=== PATIENT | female | born 1960 | race Caucasian/White ===

== ENCOUNTER 2018-09-20 13:57 | Inpatient (IN) | payer BC ==
[~2018-09-20] VITALS: Ht 162.6 cm; Wt 91.8 kg
[2018-09-20 15:09] LABS: BASOPHILS # (AUTO) 0.1 X10'3 (0-0.2); BASOPHILS % (AUTO) 1.1 % (0-1); EOSINOPHILS # (AUTO) 0.3 X10'3 (0-0.9); EOSINOPHILS % (AUTO) 2.9 % (0-6); HEMATOCRIT 40.6 % (35.0-45.0); HEMOGLOBIN 13.4 g/dl (12.0-16.0); LYMPHOCYTES # (AUTO) 3.7 X10'3 (1.1-4.8); LYMPHOCYTES % (AUTO) 37.6 % (21-51); MEAN CORPUSCULAR HEMOGLOBIN 31.3 PG (27.0-31.0); MEAN CORPUSCULAR VOLUME 94.8 FL (78-98); MONOCYTES # (AUTO) 0.7 X10'3 (0-0.9); MONOCYTES % (AUTO) 6.9 % (2-12); NEUTROPHILS % (AUTO) 51.5 % (42-75); PLATELET COUNT 241 X10'3 (140-440); RED BLOOD COUNT 4.29 X10'6 (4.20-5.60); RED CELL DISTRIBUTION WIDTH 13.2 % (11.5-14.5); WHITE BLOOD COUNT 9.8 X10'3 (4.5-11.0)
[2018-09-20 15:24] LABS: ALANINE AMINOTRANSFERASE 19 U/L (12-78); ALBUMIN 3.6 G/DL (3.4-5.0); ALKALINE PHOSPHATASE 50 IU/L (46-116); ANION GAP 8 (8-16); ASPARTATE AMINO TRANSFERASE 19 U/L (10-37); BILIRUBIN,TOTAL 0.3 MG/DL (0.1-1.0); BLOOD UREA NITROGEN 14 MG/DL (7-18); BUN/CREATININE RATIO 16.1 (6.6-38.0); CALCIUM 9.1 MG/DL (8.5-10.1); CHLORIDE 107 MMOL/L (99-107); CREATININE 0.87 MG/DL (0.40-0.90); GLUCOSE 89 MG/DL (70-104); POTASSIUM 3.6 MMOL/L (3.5-5.1); SODIUM 139 MMOL/L (135-145); TOTAL CARBON DIOXIDE 23.6 MMOL/L (24-32); TOTAL PROTEIN 7.2 G/DL (6.4-8.2); eGFR 67 ML/MIN
[2018-09-20 15:33] LABS: MAGNESIUM 1.7 MG/DL (1.5-2.4)
[2018-09-20] MEDS ORDERED: magnesium Cl slow-release 64mg tablet PO PRN (16:10)
[2018-09-20] MEDS ORDERED: magnesium hydroxide 30ml (MOM) UD suspension PO PRN (16:10)
[2018-09-20] MEDS ORDERED: acetaminophen 325mg tablet PO PRN ×2 (16:10)
[2018-09-20] MEDS ORDERED: morphine 2 MG/ML inj. syringe IV PRN ×2 (16:10)
[2018-09-20] MEDS ORDERED: magnesium 4gm in 100ml NS 100 ML IV PRN (16:10)
[2018-09-20] MEDS ORDERED: potassium Cl 20 mEq SR tablet PO PRN ×2 (16:10)
[2018-09-20] MEDS ORDERED: potassium CL 10mEq/100ml bag 100 ML IV PRN (16:10)
[2018-09-20] MEDS ORDERED: potassium Cl 40MEQ/NS 500ml 500 ML IV PRN (16:10)
[2018-09-20] MEDS ORDERED: ondansetron/PF 4mg/2ml inj IV PRN (16:10)
[2018-09-20] MEDS ORDERED: mag hydrox/Alum hydrox/simeth 30ml oral suspension PO PRN (16:10)
[2018-09-20] MEDS ORDERED: magnesium 2GM in 50ml NS 50 ML IV PRN (16:10)
[2018-09-20] MEDS ORDERED: ASPI81TA52 PO (16:12)
[2018-09-20] MEDS ORDERED: PRAV40TA3 PO (16:12)
[2018-09-20] MEDS ORDERED: fish oil PO (16:12)
[2018-09-20] MEDS ORDERED: FENO48TA15 PO (16:12)
[2018-09-20] MEDS ORDERED: ESCI20TA38 PO (16:12)
[2018-09-20] MEDS ORDERED: IRBE150T27 PO (16:12)
[2018-09-20] MEDS ORDERED: BUPR150T8 PO (16:12)
[2018-09-20] MEDS ORDERED: METO-467 PO (16:12)
[2018-09-20] MEDS ORDERED: SYN0.088T PO (16:12)
[2018-09-20 17:07] VITALS: BP 149/70
--- NOTE | 2018-09-20 17:26 | NUR ---
[place] Medication Administration: For this medication-pass time frame, all medication were reviewed, dispensed, administered and documented per hospital policy by MEG Krishnan.
[2018-09-20 18:18] VITALS: BP 110/62
--- NOTE | 2018-09-20 18:18 | NUR ---
Problems reprioritized. Patient report given, questions answered & plan of care reviewed with Bailey Miller/Yamilka MILLER.
[2018-09-20] MEDS: enoxaparin 80mg/0.8ml syringe SUBCUT SCH (20:13)
[2018-09-20] MEDS ORDERED: iohexol 350MG/ML 100ml bottle IV ONE (20:49)
[2018-09-20] MEDS: morphine 2 MG/ML inj. syringe IV PRN ×2 (21:05→23:44)
[2018-09-20] MEDS: nitroGLYCERIN 0.4mg SUBLingual tab SL PRN ×2 (21:26→21:31)
[2018-09-20 21:28] VITALS: BP 124/62
--- NOTE | 2018-09-20 21:47 | NUR ---
Patient in room PCU 3026. I have received report from Jamal WEAVER and Guillermina WEAVER and had the opportunity to ask questions and assume patient care.
[2018-09-21] VITALS (12 sets, daily range): BP systolic 112–153; BP diastolic 60–87
--- NOTE | 2018-09-21 06:00 | NUR ---
Patient in room U 3026. I have received report from MEG Prather and had the opportunity to ask questions and assume patient care. Patient is currently sleeping in bed, bed locked and low, call light in reach. No acute distress, no needs at this time.
--- NOTE | 2018-09-21 06:12 | NUR ---
Problems reprioritized. Patient report given, questions answered & plan of care reviewed with Palmira WEAVER and Kailey RN.
[2018-09-21 06:30] LABS: BASOPHILS # (AUTO) 0.1 X10'3 (0-0.2); BASOPHILS % (AUTO) 0.9 % (0-1); EOSINOPHILS # (AUTO) 0.1 X10'3 (0-0.9); HEMATOCRIT 38.6 % (35.0-45.0); LYMPHOCYTES # (AUTO) 2.3 X10'3 (1.1-4.8); LYMPHOCYTES % (AUTO) 37.3 % (21-51); MEAN CORPUSCULAR HEMOGLOBIN 31.7 PG (27.0-31.0); MEAN CORPUSCULAR HGB CONC 33.7 g/dL (33.0-36.5); MEAN CORPUSCULAR VOLUME 93.9 FL (78-98); MEAN PLATELET VOLUME 9.1 FL (7.4-10.4); MONOCYTES # (AUTO) 0.5 X10'3 (0-0.9); MONOCYTES % (AUTO) 7.9 % (2-12); NEUTROPHILS # (AUTO) 3.2 X10'3 (1.8-7.7); NEUTROPHILS % (AUTO) 51.9 % (42-75); PLATELET COUNT 210 X10'3 (140-440); RED BLOOD COUNT 4.11 X10'6 (4.20-5.60); WHITE BLOOD COUNT 6.3 X10'3 (4.5-11.0)
--- NOTE | 2018-09-21 06:44 | NUR ---
Patient in room U 3027T. I have received report from Yamilka WEAVER and Bailey RN and had the opportunity to ask questions and assume patient care. Patient is sleeping and resting comfortably in bed, appears to be in no distress. Bed is low and locked with call light within reach. Will continue to monitor at this time.
[2018-09-21] MEDS ORDERED: levoTHYROXINE 112mcg tablet PO SCH (07:00)
[2018-09-21] MEDS ORDERED: levoTHYROXINE 25mcg tablet PO SCH (07:00)
[2018-09-21] MEDS: enoxaparin 80mg/0.8ml syringe SUBCUT SCH (07:24)
[2018-09-21] MEDS: morphine 2 MG/ML inj. syringe IV PRN (07:26)
[2018-09-21 07:40] LABS: ALBUMIN 3.2 G/DL (3.4-5.0); ANION GAP 8 (8-16); BLOOD UREA NITROGEN 11 MG/DL (7-18); BUN/CREATININE RATIO 11.5 (6.6-38.0); CALCIUM 8.5 MG/DL (8.5-10.1); CHLORIDE 108 MMOL/L (99-107); CHOLESTEROL 170 MG/DL (0-200); CREATININE 0.96 MG/DL (0.40-0.90); GLUCOSE 94 MG/DL (70-104); HDL CHOLESTEROL 34 MG/DL (35-60); LDL CHOLESTEROL 104 MG/DL (50-100); MAGNESIUM 1.7 MG/DL (1.5-2.4); POTASSIUM 3.8 MMOL/L (3.5-5.1); SODIUM 140 MMOL/L (135-145); TOTAL CARBON DIOXIDE 23.9 MMOL/L (24-32); TRIGLYCERIDES 225 MG/DL (20-135); TROPONIN I < 0.04 NG/ML (0.0-0.05); eGFR 60 ML/MIN
[2018-09-21] MEDS ORDERED: K and/or MAG REPLACEMENT MC SCH (08:00)
[2018-09-21] MEDS ORDERED: aspirin 81mg tablet.DR PO SCH (08:00)
[2018-09-21] MEDS ORDERED: citalopram 20mg tablet PO SCH (08:00)
[2018-09-21] MEDS ORDERED: nitroGLYCERIN 0.4mg/hour patch TD SCH (08:00)
[2018-09-21] MEDS ORDERED: buPROPion SR 150mg tablet PO SCH (08:00)
[2018-09-21] MEDS ORDERED: escitalopram 20mg tablet PO SCH (08:00)
[2018-09-21] MEDS ORDERED: fenofibrate 48mg tablet PO SCH (08:00)
[2018-09-21] MEDS ORDERED: non-formulary drug (Irbesartan 1 TAB) PO SCH (08:00)
[2018-09-21] MEDS ORDERED: enoxaparin 40mg/0.4ml syringe SQ SCH (08:00)
[2018-09-21] MEDS ORDERED: pravastatin 40mg tablet PO SCH (08:00)
[2018-09-21] MEDS ORDERED: losartan 50mg tablet PO SCH (08:00)
--- NOTE | 2018-09-21 08:20 | NUR ---
Patient verbalizes continued chest pain, relief upon administration of Morphine. Not new chest pain, will continue to monitor.
[2018-09-21] MEDS ORDERED: aminophylline 250mg/10ml inj. IV PRN (10:00)
[2018-09-21] MEDS ORDERED: nitroGLYCERIN 0.4mg SUBLingual tab SL PRN (10:00)
[2018-09-21] MEDS ORDERED: regadenoson 0.4mg/5ml syringe IV PRN (10:00)
[2018-09-21] MEDS ORDERED: metoprolol tartrate 1mg/ml inj IV PRN (10:00)
--- NOTE | 2018-09-21 10:18 | NUR ---
Patient educated about Lexiscan and agrees to proceed with procedure. Will monitor at this time
--- NOTE | 2018-09-21 10:30 | NUR ---
Patient down to nuclear medicine for sahil. Currently in stable condition, no apparent distress.
[2018-09-21] MEDS ORDERED: regadenoson 0.4mg/5ml syringe IV ONE (10:45)
[2018-09-21] MEDS ORDERED: aminophylline inj. 10 ML IV ONE (10:45)
--- NOTE | 2018-09-21 10:57 | NUR ---
Physical assessment completed by MEG Bonner and reviewed by Palmira WEAVER. Constructive criticism given as needed.
--- NOTE | 2018-09-21 12:25 | NUR ---
PAGER ID: [phone] MESSAGE: MEG Bonner, ext [phone], [phone], sahil Bergman results back, can she eat? Thank you.
--- NOTE | 2018-09-21 12:27 | NUR ---
Spoke with MD Hodge, patient is able to eat, patient may go home this afternoon if she wants, received order to DC nitropatch and instruct patient to ambulate to see how she is doing with pain. Patient to be informed of test results and instructed that pain is likely not cardiac related.
--- NOTE | 2018-09-21 15:49 | NUR ---
PAGER ID: [phone] MESSAGE: MEG Bonner ext [phone], [phone], [place]. Patient inquiring about discharge, denies complaints, vitals stable, nitropatch removed >2hrs ago, patient ambulating without difficulty.
--- NOTE | 2018-09-21 16:26 | NUR ---
PAGER ID: [phone] MESSAGE: [phone], [place], Is patient being discharged today? Thank you, Kailey ames [phone]
--- NOTE | 2018-09-21 17:03 | NUR ---
Received orders for patient discharge. Patient will follow up with Dr. Welsh on sunday to discuss changes to medication regime and will also follow up with primary care provider regarding cause of chest pain since it is unlikely cardiac related. Patient will was educated on discharge orders verbalized understanding. Patient gathered belongings and denies complaints at this time. Patient condition is stable as of discharge. Patient denied offer of wheelchair and will walk down to lobby escorted by nurse aid.
== END 2018-09-21 17:06 | disposition home or self-care (01) | DRG 313 ==
LOC: ER 13:57 → PCU 3S 16:23
PROVIDERS: ADMIT Hospitalist; ATTEND Hospitalist
PROC: B32T1ZZ Computerized Tomography (CT Scan) of Left Pulmonary Artery using Low Osmolar Contrast (ICD-10-PCS; 2018-09-20)
PROC: B3201ZZ Computerized Tomography (CT Scan) of Thoracic Aorta using Low Osmolar Contrast (ICD-10-PCS; 2018-09-20)
PROC: B32S1ZZ Computerized Tomography (CT Scan) of Right Pulmonary Artery using Low Osmolar Contrast (ICD-10-PCS; 2018-09-20)
PROC: 4A02XM4 Measurement of Cardiac Total Activity, External Approach (ICD-10-PCS; principal; 2018-09-21)
PROC: 3E033HZ Introduction of Radioactive Substance into Peripheral Vein, Percutaneous Approach (ICD-10-PCS; 2018-09-21)
DX: R07.89 Other chest pain (principal); I10 Essential (primary) hypertension; J98.4 Other disorders of lung; R00.1 Bradycardia, unspecified; I25.10 Atherosclerotic heart disease of native coronary artery without angina pectoris; R91.1 Solitary pulmonary nodule; G89.29 Other chronic pain; Z87.891 Personal history of nicotine dependence
CPT/HCPCS: 36415; 71045; 71275; 78452; 80048; 80053; 80061; 83735; 83880; 84443; 84484; 85025; 87070; 93005; 93017; 99285; A9500; G0378; J0280; J1650; J2270; Q9967